=== PATIENT | male | born 1960 | race Caucasian/White ===

== ENCOUNTER 2017-07-06 14:36 | Emergency (ER) | payer OTHER ==
[~2017-07-06] VITALS: Ht 177.8 cm; Wt 90.0 kg
[~2017-07-06 14:36] MED LIST: ASPI-496 PO; ATOR20TA PO
[2017-07-06] MEDS ORDERED: MORPHINE SULFATE 4 MG/ML, 1ML ONE ×2 (15:27→16:36)
[2017-07-06] MEDS ORDERED: SODIUM CHLORIDE 0.9% 1,000ML IVBOLUS ONE (15:30)
[2017-07-06] MEDS ORDERED: SODIUM CHLORIDE FLUSH 10ML SYR IVF ONE (15:30)
[2017-07-06] MEDS: MORPHINE SULFATE 4 MG/ML, 1ML IVPush PRN ×2 (15:32→16:38)
[2017-07-06 15:53] LABS: HEMATOCRIT 50.2 % (39.2-51.8); HEMOGLOBIN 16.8 g/dL (13.7-18.0); WHITE BLOOD COUNT 9.9 x10^3/uL (3.4-10)
[2017-07-06 16:08] LABS: ASPARTATE AMINO TRANSFERASE 17 U/L (15-37); BLOOD UREA NITROGEN 11 mg/dL (7-18)
[2017-07-06] MEDS ORDERED: MORPHINE SULFATE 4 MG/ML, 1ML IVPush PRN (16:30)
[2017-07-06] MEDS ORDERED: morphine SULFATE 10 MG/ML, 1ML IVPush ONE (16:30)
[2017-07-06 16:38] VITALS: BP 144/97
[2017-07-06] MEDS ORDERED: OMNIPAQUE 350 MG/ML, 100ML BOTTLE ONE (16:39)
== END 2017-07-06 17:25 | disposition home or self-care (01) ==
LOC: ED 17:19
DX: K57.32 Diverticulitis of large intestine without perforation or abscess without bleeding (principal)
CPT/HCPCS: 36415; 74177; 80053; 81003; 83605; 83690; 85025; 96361; 96374; 96376; 99285; J7030; Q9967

== ENCOUNTER 2018-04-07 15:15 | Inpatient (IN) | payer OTHER ==
[~2018-04-07] VITALS: Ht 177.8 cm; Wt 95.2 kg
[2018-04-07] MEDS ORDERED: ASPIRIN 81 MG TABLET CHEW ONE (16:13)
[2018-04-07] MEDS ORDERED: SODIUM CHLORIDE FLUSH 10ML SYR IVF ONE (16:30)
[2018-04-07] MEDS ORDERED: NITROGLYCERIN SINGLE TAB 0.4 MG SL PRN (16:30)
[2018-04-07] MEDS ORDERED: ASPIRIN 81 MG TABLET CHEW PO ONE (16:30)
[2018-04-07] MEDS ORDERED: NITROGLYCERIN OINT 2%, 1GM TP ONE ×2 (16:30→16:36)
[2018-04-07 16:49] LABS: BASOPHILS # (AUTO) 0.04 x10^3/uL (0-0.1); BASOPHILS % (AUTO) 1 % (0-1); EOSINOPHILS # (AUTO) 0.22 x10^3/uL (0-0.4); EOSINOPHILS % (AUTO) 3 % (1-7); LYMPHOCYTES % (AUTO) 26 % (22-44); MD NO; MEAN CORPUSCULAR HEMOGLOBIN 30.4 pg (27.5-34.5); MEAN CORPUSCULAR HGB CONC 33.3 g/dL (33.2-36.2); MEAN CORPUSCULAR VOLUME 91.4 fL (81-97); MEAN PLATELET VOLUME 9.4 fL (7.4-10.4); MONOCYTES # (AUTO) 0.59 x10^3/uL (0.2-0.8); MONOCYTES % (AUTO) 9 % (2-9); NEUTROPHILS # (AUTO) 4.21 x10^3/uL (1.8-6.8); NEUTROPHILS % (AUTO) 61 % (42-75); PLATELET COUNT 155 x10^3/uL (130-400); RED CELL DISTRIBUTION WIDTH 13.7 % (9.4-14.8)
[2018-04-07 16:56] LABS: ALANINE AMINOTRANSFERASE 44 U/L (12-78); ALBUMIN 3.8 g/dL (3.4-5.0); ANION GAP 8 mmol/L (5-15); CALCIUM 8.4 mg/dL (8.5-10.1); CHLORIDE 110 mmol/L (98-107); CREATININE 0.85 mg/dL (0.7-1.3)
[2018-04-07 17:01] LABS: ALKALINE PHOSPHATASE 70 U/L (45-117); BILIRUBIN,TOTAL 0.4 mg/dL (0.2-1.0); TOTAL PROTEIN 7.2 g/dL (6.4-8.2); TROPONIN I < 0.015 ng/mL (0.000-0.045)
[2018-04-07] MEDS ORDERED: LABETALOL 5MG/ML, 20ML IVPush PRN (17:30)
[2018-04-07] MEDS ORDERED: ONDANSETRON 2MG/ML, 2ML IVPush PRN (17:30)
[2018-04-07] MEDS ORDERED: POLYETHYLENE GLYCOL 17 GM PACKET PO PRN (17:30)
[2018-04-07] MEDS ORDERED: ONDANSETRON ODT 4 MG PO PRN (17:30)
[2018-04-07 18:29] VITALS: BP 144/94
[2018-04-07 18:30] LABS: FREE T4 (FREE THYROXINE) 0.91 ng/dL (0.76-1.46)
[2018-04-07] MEDS ORDERED: SODIUM CHLORIDE 0.9% 1,000 ML IV SCH (18:30)
[2018-04-07] MEDS ORDERED: ENOXAPARIN 40 MG/0.4 ML SQ SCH (18:30)
[2018-04-07] MEDS: MORPHINE SULFATE 4 MG/ML, 1ML IVPush PRN ×2 (18:39→18:58)
[2018-04-07 18:46] VITALS: BP 153/103
[2018-04-07] MEDS ORDERED: NITROGLYCERIN 0.4 MG BOTTLE (25 TABS) SL ONE (18:50)
[2018-04-07] MEDS ORDERED: ASPIRIN 325 MG TABLET ONE (18:56)
[2018-04-07] MEDS ORDERED: HEPARIN 25,000 UNITS/500ML PMX 500 ML ONE (18:59)
[2018-04-07] MEDS ORDERED: ASPIRIN 325 MG TABLET PO ONE (19:00)
[2018-04-07] MEDS ORDERED: METOPROLOL 1 MG/ML, 5ML ONE (19:01)
[2018-04-07] MEDS ORDERED: HEPARIN 5,000 UNITS/ML, 1ML ONE (19:02)
[2018-04-07 19:08] VITALS: BP 120/81
[2018-04-07] MEDS: METOPROLOL 1 MG/ML, 5ML IVPush PRN ×2 (19:09→19:16)
[2018-04-07 19:11] VITALS: BP 129/83
[2018-04-07 19:19] VITALS: BP 125/82
[2018-04-07] MEDS ORDERED: SODIUM CHLORIDE 0.9% 1,000ML IVBOLUS ONE (19:30)
[2018-04-07] MEDS ORDERED: HEPARIN 5,000 UNITS/ML, 1ML IV PRN (19:30)
[2018-04-07] MEDS ORDERED: HEPARIN 25,000 UNITS/500ML PMX 500 ML IV PRN (19:30)
[2018-04-07] MEDS ORDERED: HEPARIN 5,000 UNITS/ML, 1ML IV ONE (19:30)
[2018-04-07] MEDS ORDERED: MIDAZOLAM 1 MG/ML, 2ML ONE ×2 (19:37→19:53)
[2018-04-07] MEDS ORDERED: BIVALIRUDIN 250 MG ONE ×2 (19:37→20:11)
[2018-04-07] MEDS ORDERED: FENTANYL PF 100 MCG/2ML ONE ×2 (19:37→19:54)
[2018-04-07] MEDS ORDERED: TICAGRELOR 90 MG TABLET ONE (19:37)
[2018-04-07] MEDS ORDERED: LIDOCAINE-MPF 2% ,5ML ONE (19:38)
[2018-04-07 19:42] LABS: TROPONIN I 0.089 ng/mL (0.000-0.045)
[2018-04-07] MEDS ORDERED: BIVALIRUDIN 250 MG in DEXTROSE 5% 50 ML IV SCH (20:18)
[2018-04-07] MEDS ORDERED: ATORVASTATIN 20 MG TABLET PO SCH (21:00)
[2018-04-07] MEDS: TICAGRELOR 90 MG TABLET PO SCH (21:19)
[2018-04-07] MEDS: PANTOPROZOLE 40MG TABLET PO SCH (21:50)
[2018-04-07] MEDS: SODIUM CHLORIDE 0.9% 1,000 ML IV SCH (21:50)
[2018-04-07] MEDS: ACETAMINOPHEN 325 MG TABLET PO PRN (23:10)
[2018-04-08] MEDS: ZOLPIDEM 5MG TABLET PO PRN ×2 (00:48→03:45)
[2018-04-08] MEDS: ACETAMINOPHEN 325 MG TABLET PO PRN ×2 (03:45→20:07)
[2018-04-08 05:01] LABS: ALANINE AMINOTRANSFERASE 102 U/L (12-78); ALBUMIN 3.2 g/dL (3.4-5.0); ANION GAP 10 mmol/L (5-15); CALCIUM 7.5 mg/dL (8.5-10.1); CHLORIDE 112 mmol/L (98-107); CREATININE 0.86 mg/dL (0.7-1.3)
[2018-04-08 05:20] LABS: ALKALINE PHOSPHATASE 58 U/L (45-117); TOTAL PROTEIN 6.1 g/dL (6.4-8.2)
[2018-04-08 05:50] LABS: TROPONIN I > 200.000 ng/mL (0.000-0.045)
[2018-04-08] MEDS: SODIUM CHLORIDE 0.9% 1,000 ML IV SCH ×2 (05:59→08:34)
[2018-04-08] MEDS ORDERED: METOPROLOL TARTRATE 25 MG TABLET PO SCH (06:00)
[2018-04-08] MEDS ORDERED: POTASSIUM CHLORIDE 20 MEQ TAB.ER.PRT PO ONE ×2 (07:30→10:00)
[2018-04-08] MEDS ORDERED: MORPHINE SULFATE 4 MG/ML, 1ML ONE (07:57)
[2018-04-08] MEDS ORDERED: MAGNESIUM SULFATE PMX 2GM/50ML 50 ML IV ONE (08:00)
[2018-04-08] MEDS ORDERED: MORPHINE SULFATE 4 MG/ML, 1ML IVPush ONE (08:00)
[2018-04-08] MEDS ORDERED: NITROGLYCERIN 0.4 MG BOTTLE (25 TABS) SL ONE ×2 (08:16→08:30)
[2018-04-08 08:21] VITALS: BP 129/93
[2018-04-08] MEDS ORDERED: SODIUM CHLORIDE 0.9% 1,000 ML IV ONE (08:27)
[2018-04-08] MEDS ORDERED: NITROGLYCERIN SINGLE TAB 0.4 MG SL ONE (08:30)
[2018-04-08] MEDS ORDERED: MIDAZOLAM 1 MG/ML, 5ML ONE (08:37)
[2018-04-08] MEDS ORDERED: VERAPAMIL 2.5 MG/ML, 2ML ONE (08:37)
[2018-04-08] MEDS ORDERED: FENTANYL PF 100 MCG/2ML ONE (08:37)
[2018-04-08] MEDS ORDERED: BIVALIRUDIN 250 MG ONE (08:37)
[2018-04-08] MEDS ORDERED: HEPARIN 1,000 UNITS/ML, 10ML ONE (08:38)
[2018-04-08] MEDS ORDERED: LIDOCAINE-MPF 2% ,5ML ONE (08:38)
[2018-04-08] MEDS ORDERED: ASPIRIN 81 MG TABLET EC PO SCH (09:00)
[2018-04-08] MEDS ORDERED: SODIUM CHLORIDE 0.9% 1,000 ML IV SCH ×2 (09:00)
[2018-04-08] MEDS ORDERED: MORPHINE SULFATE 4 MG/ML, 1ML IVPush PRN (09:00)
[2018-04-08] MEDS ORDERED: NITROGLYCERIN/D5W PMX 250 ML ONE (09:57)
[2018-04-08] MEDS: PANTOPROZOLE 40MG TABLET PO SCH ×2 (10:32→21:32)
[2018-04-08] MEDS: ASPIRIN 81 MG TABLET EC PO SCH (10:32)
[2018-04-08] MEDS: SENNA/DOCUSATE TABLET PO SCH (10:32)
[2018-04-08] MEDS: TICAGRELOR 90 MG TABLET PO SCH ×2 (10:32→21:32)
[2018-04-08] MEDS ORDERED: NITROGLYCERIN/D5W PMX 250 ML IV PRN (13:00)
[2018-04-08] MEDS ORDERED: ONDANSETRON 2MG/ML, 2ML ONE (13:03)
[2018-04-08] MEDS: CARVEDILOL 6.25 MG TABLET PO SCH (18:02)
[2018-04-08] MEDS: ATORVASTATIN 80 MG TABLET PO SCH (21:32)
[2018-04-09] MEDS: ZOLPIDEM 5MG TABLET PO PRN (00:23)
[2018-04-09] MEDS: ACETAMINOPHEN 325 MG TABLET PO PRN ×3 (00:23→16:07)
[2018-04-09] MEDS: CARVEDILOL 6.25 MG TABLET PO SCH ×2 (06:25→16:59)
[2018-04-09] MEDS: TICAGRELOR 90 MG TABLET PO SCH ×2 (08:48→21:44)
[2018-04-09] MEDS: ASPIRIN 81 MG TABLET EC PO SCH (08:48)
[2018-04-09] MEDS: PANTOPROZOLE 40MG TABLET PO SCH ×2 (08:48→21:43)
[2018-04-09] MEDS: SENNA/DOCUSATE TABLET PO SCH (08:49)
[2018-04-09 09:55] LABS: ALANINE AMINOTRANSFERASE 73 U/L (12-78); ALBUMIN 3.3 g/dL (3.4-5.0); ANION GAP 9 mmol/L (5-15); CHLORIDE 110 mmol/L (98-107); CREATININE 0.88 mg/dL (0.7-1.3)
[2018-04-09 09:58] LABS: ALKALINE PHOSPHATASE 56 U/L (45-117); BILIRUBIN,TOTAL 1.2 mg/dL (0.2-1.0); CHOL/HDL RATIO 3.1; CHOLESTEROL, TOTAL 105 mg/dL (140-239); HDL CHOL % 32 % (26-37); HDL CHOLESTEROL (DIRECT) 34 mg/dL (40-60); LDL CHOLESTEROL,CALCULATED 53 mg/dL (54-169); LDL/HDL RATIO 1.6 (0.5-3.0); TOTAL PROTEIN 6.6 g/dL (6.4-8.2); TRIGLYCERIDES 90 mg/dL (50-200); VLDL CHOLESTEROL 18 mg/dL (0-25)
[2018-04-09] MEDS ORDERED: POTASSIUM CHLORIDE 20 MEQ TAB.ER.PRT PO ONE (11:00)
[2018-04-09 20:16] VITALS: BP 100/69
[2018-04-09] MEDS: ATORVASTATIN 80 MG TABLET PO SCH (21:43)
[2018-04-09] MEDS: LISINOPRIL 5 MG TABLET PO SCH (21:44)
[2018-04-10 01:56] VITALS: BP 97/63
[2018-04-10] MEDS: ACETAMINOPHEN 325 MG TABLET PO PRN (02:06)
[2018-04-10 05:15] LABS: ANION GAP 7 mmol/L (5-15); CHLORIDE 111 mmol/L (98-107); CREATININE 0.91 mg/dL (0.7-1.3)
[2018-04-10 05:16] LABS: CALCIUM 8.7 mg/dL (8.5-10.1)
[2018-04-10] MEDS: CARVEDILOL 6.25 MG TABLET PO SCH (06:24)
[2018-04-10 08:14] VITALS: BP 107/75
[2018-04-10] MEDS: TICAGRELOR 90 MG TABLET PO SCH (08:39)
[2018-04-10] MEDS: PANTOPROZOLE 40MG TABLET PO SCH (08:39)
[2018-04-10] MEDS: LISINOPRIL 5 MG TABLET PO SCH (08:39)
[2018-04-10] MEDS: ASPIRIN 81 MG TABLET EC PO SCH (08:39)
[2018-04-10] MEDS: SENNA/DOCUSATE TABLET PO SCH (08:42)
[2018-04-10] MEDS ORDERED: ONDA4TAB7 PO (10:54)
[2018-04-10] MEDS ORDERED: TICA90TA PO (10:54)
[2018-04-10] MEDS ORDERED: CARV6.2512 PO (10:54)
[2018-04-10] MEDS ORDERED: ATOR-2 PO (10:54)
[2018-04-10] MEDS ORDERED: LISI5TAB7 PO (10:54)
[2018-04-10] MEDS ORDERED: NITR0.4T28 SL (10:54)
[2018-04-10 13:04] VITALS: BP 102/69
[2018-04-10] MEDS ORDERED: NITROGLYCERIN 0.4 MG BOTTLE (25 TABS) SL ONE (13:29)
[2018-04-11] MEDS ORDERED: CHOL40002 PO (12:58)
[2018-04-11] MEDS ORDERED: CETI10TA24 PO (12:58)
[2018-04-11] MEDS ORDERED: UBID100C24 PO (12:59)
[2018-04-11] MEDS ORDERED: ASCO10004 PO (13:00)
[2018-04-11] MEDS ORDERED: DIAZ10TA4 PO (13:01)
== END 2018-04-10 13:48 | disposition home or self-care (01) | DRG 246 ==
LOC: ED 17:23 → EDIP 17:24 → INTOOBSV 17:24 → UNDOADMOB 17:24 → EDIP 17:29 → ED 17:42 → OBSVTOIN 18:00 → 5SO 18:24 → EDIP 18:24 → CCU 20:36 → 5SO 04-09 19:21
PROVIDERS: ADMIT Hospitalist; ATTEND Hospitalist
PROC: 027034Z Dilation of Coronary Artery, One Artery with Drug-eluting Intraluminal Device, Percutaneous Approach (ICD-10-PCS; 2018-04-07)
PROC: 4A023N7 Measurement of Cardiac Sampling and Pressure, Left Heart, Percutaneous Approach (ICD-10-PCS; principal; 2018-04-08)
PROC: B2111ZZ Fluoroscopy of Multiple Coronary Arteries using Low Osmolar Contrast (ICD-10-PCS; 2018-04-08)
PROC: B2151ZZ Fluoroscopy of Left Heart using Low Osmolar Contrast (ICD-10-PCS; 2018-04-08)
DX: I21.09 ST elevation (STEMI) myocardial infarction involving other coronary artery of anterior wall (principal); I50.33 Acute on chronic diastolic (congestive) heart failure; K57.92 Diverticulitis of intestine, part unspecified, without perforation or abscess without bleeding; E78.5 Hyperlipidemia, unspecified; I11.0 Hypertensive heart disease with heart failure; I25.110 Atherosclerotic heart disease of native coronary artery with unstable angina pectoris; I25.2 Old myocardial infarction; I25.5 Ischemic cardiomyopathy; I34.0 Nonrheumatic mitral (valve) insufficiency; Z79.82 Long term (current) use of aspirin; Z80.7 Family history of other malignant neoplasms of lymphoid, hematopoietic and related tissues; Z80.8 Family history of malignant neoplasm of other organs or systems; Z82.49 Family history of ischemic heart disease and other diseases of the circulatory system; Z87.891 Personal history of nicotine dependence; Z90.49 Acquired absence of other specified parts of digestive tract
CPT/HCPCS: 36415; 71045; 80048; 80053; 80061; 83036; 83735; 83880; 84100; 84439; 84443; 84484; 85025; 87081; 93005; 93306; 93454; 93458; 99156; 99157; 99285; C1760; C1769; C1894; J0583; J1644; J1650; J2250; J2405; J3010; J3490; Q0162; C1725; C1874; C1887; G0378; J3475; J7030; Q9967

== ENCOUNTER 2018-04-11 12:35 | Observation (INO) | payer OTHER ==
[~2018-04-11] VITALS: Ht 177.8 cm; Wt 89.5 kg
[~2018-04-11 12:35] MED LIST changes: +ATOR-2 PO; +CARV6.2512 PO; +LISI5TAB7 PO; +NITR0.4T28 SL; +ONDA4TAB7 PO; +TICA90TA PO
[2018-04-11] MEDS ORDERED: CHOL40002 PO (12:58)
[2018-04-11] MEDS ORDERED: CETI10TA24 PO (12:58)
[2018-04-11] MEDS ORDERED: UBID100C24 PO (12:59)
[2018-04-11] MEDS ORDERED: HEPARIN 25,000 UNITS/500ML PMX 500 ML IV PRN (13:00)
[2018-04-11] MEDS ORDERED: HEPARIN 5,000 UNITS/ML, 1ML IV ONE (13:00)
[2018-04-11] MEDS ORDERED: ONDANSETRON 4 MG TABLET PO PRN (13:00)
[2018-04-11] MEDS ORDERED: NITROGLYCERIN 0.4 MG/SPRAY SL PRN (13:00)
[2018-04-11] MEDS ORDERED: ASCO10004 PO (13:00)
[2018-04-11] MEDS ORDERED: NITROGLYCERIN 0.4 MG BOTTLE (25 TABS) SL PRN ×2 (13:00)
[2018-04-11] MEDS ORDERED: DIAZ10TA4 PO (13:01)
[2018-04-11 13:03] LABS: BASOPHILS # (AUTO) 0.03 x10^3/uL (0-0.1); BASOPHILS % (AUTO) 0 % (0-1); EOSINOPHILS % (AUTO) 2 % (1-7); LYMPHOCYTES # (AUTO) 1.61 x10^3/uL (1-3.4); LYMPHOCYTES % (AUTO) 19 % (22-44); MD NO; MEAN CORPUSCULAR HEMOGLOBIN 30.6 pg (27.5-34.5); MEAN CORPUSCULAR HGB CONC 33.5 g/dL (33.2-36.2); MEAN CORPUSCULAR VOLUME 91.2 fL (81-97); MEAN PLATELET VOLUME 10.5 fL (7.4-10.4); MONOCYTES # (AUTO) 0.63 x10^3/uL (0.2-0.8); MONOCYTES % (AUTO) 7 % (2-9); NEUTROPHILS # (AUTO) 6.02 x10^3/uL (1.8-6.8); NEUTROPHILS % (AUTO) 71 % (42-75); PLATELET COUNT 173 x10^3/uL (130-400); RED BLOOD COUNT 4.77 x10^6/uL (4.38-5.82); RED CELL DISTRIBUTION WIDTH 13.6 % (9.4-14.8)
[2018-04-11 13:12] LABS: INTERNATIONAL NORMALIZED RATIO 1.03 (0.93-1.1); PROTHROMBIN TIME 10.7 Seconds (9.6-11.5)
[2018-04-11] MEDS ORDERED: FUROSEMIDE 20 MG/2 ML ONE (13:12)
[2018-04-11] MEDS ORDERED: HEPARIN 5,000 UNITS/ML, 1ML ONE (13:12)
[2018-04-11 13:13] LABS: ALBUMIN 3.4 g/dL (3.4-5.0); ANION GAP 12 mmol/L (5-15); CALCIUM 8.4 mg/dL (8.5-10.1); CHLORIDE 109 mmol/L (98-107)
[2018-04-11 13:19] LABS: CREATININE 0.94 mg/dL (0.7-1.3)
[2018-04-11] MEDS ORDERED: HEPARIN 25,000 UNITS/500ML PMX 500 ML ONE (13:21)
[2018-04-11] MEDS ORDERED: FUROSEMIDE 20 MG/2 ML IV ONE (13:30)
[2018-04-11] MEDS ORDERED: POTASSIUM CHLORIDE 20 MEQ TAB.ER.PRT PO ONE (14:00)
[2018-04-11] MEDS ORDERED: POTASSIUM CHLORIDE 20 MEQ TAB.ER.PRT ONE (14:19)
[2018-04-11 15:59] VITALS: BP 104/71
[2018-04-11] MEDS: CARVEDILOL 6.25 MG TABLET PO SCH (17:27)
[2018-04-11 18:52] VITALS: BP 104/70
[2018-04-11] MEDS ORDERED: ATORVASTATIN 80 MG TABLET PO SCH (21:00)
[2018-04-11] MEDS: SODIUM CHLORIDE FLUSH 10ML SYR IVF SCH (21:33)
[2018-04-11] MEDS: TICAGRELOR 90 MG TABLET PO SCH (21:33)
[2018-04-11] MEDS: LISINOPRIL 5 MG TABLET PO SCH (21:33)
[2018-04-11] MEDS: HEPARIN 5,000 UNITS/ML, 1ML IV PRN (21:35)
[2018-04-12 02:55] VITALS: BP 102/69
[2018-04-12 04:57] LABS: ANION GAP 8 mmol/L (5-15); CALCIUM 8.6 mg/dL (8.5-10.1); CHLORIDE 110 mmol/L (98-107); CREATININE 0.97 mg/dL (0.7-1.3)
[2018-04-12] MEDS: CARVEDILOL 6.25 MG TABLET PO SCH (05:47)
[2018-04-12] MEDS: HEPARIN 5,000 UNITS/ML, 1ML IV PRN (06:42)
[2018-04-12] MEDS: TICAGRELOR 90 MG TABLET PO SCH (07:27)
[2018-04-12] MEDS: SODIUM CHLORIDE FLUSH 10ML SYR IVF SCH (07:27)
[2018-04-12] MEDS: LISINOPRIL 5 MG TABLET PO SCH (07:27)
[2018-04-12 07:45] VITALS: BP 102/70
[2018-04-12] MEDS ORDERED: ASPIRIN 81 MG TABLET EC PO SCH (09:00)
== END 2018-04-12 11:45 | disposition home or self-care (01) ==
LOC: ED 13:03 → EDIP 13:04 → 5SO 15:37 → DCLOUNGE 04-12 11:29
PROVIDERS: ADMIT Internal Medicine Cardiovascular Disease; ATTEND Internal Medicine Cardiovascular Disease
DX: R07.89 Other chest pain (principal); I25.10 Atherosclerotic heart disease of native coronary artery without angina pectoris; I25.5 Ischemic cardiomyopathy; I34.0 Nonrheumatic mitral (valve) insufficiency; I11.0 Hypertensive heart disease with heart failure; I50.41 Acute combined systolic (congestive) and diastolic (congestive) heart failure; E78.5 Hyperlipidemia, unspecified; I25.2 Old myocardial infarction; Z95.5 Presence of coronary angioplasty implant and graft
CPT/HCPCS: 36415; 71045; 80048; 82040; 83880; 84484; 85025; 85520; 85610; 85730; 93005; 96365; 96366; 96375; 96376; 99285; G0378; J1644; J1940

== ENCOUNTER 2018-05-06 08:55 | Emergency (ER) | payer OTHER ==
[~2018-05-06] VITALS: Ht 177.8 cm; Wt 86.0 kg
[~2018-05-06 08:55] MED LIST changes: +ASCO10004 PO; +CETI10TA24 PO; +CHOL40002 PO; +DIAZ10TA4 PO; +MULT-97 PO; +UBID100C24 PO
[2018-05-06] MEDS ORDERED: SODIUM CHLORIDE FLUSH 10ML SYR IVF ONE (09:30)
[2018-05-06 09:42] LABS: BASOPHILS # (AUTO) 0.02 x10^3/uL (0-0.1); BASOPHILS % (AUTO) 0 % (0-1); EOSINOPHILS # (AUTO) 0.17 x10^3/uL (0-0.4); EOSINOPHILS % (AUTO) 4 % (1-7); LYMPHOCYTES # (AUTO) 1.47 x10^3/uL (1-3.4); LYMPHOCYTES % (AUTO) 31 % (22-44); MD NO; MEAN CORPUSCULAR HEMOGLOBIN 30.6 pg (27.5-34.5); MEAN CORPUSCULAR HGB CONC 33.8 g/dL (33.2-36.2); MEAN CORPUSCULAR VOLUME 90.7 fL (81-97); MEAN PLATELET VOLUME 9.7 fL (7.4-10.4); MONOCYTES # (AUTO) 0.39 x10^3/uL (0.2-0.8); MONOCYTES % (AUTO) 8 % (2-9); NEUTROPHILS # (AUTO) 2.76 x10^3/uL (1.8-6.8); NEUTROPHILS % (AUTO) 57 % (42-75); PLATELET COUNT 126 x10^3/uL (130-400); RED BLOOD COUNT 4.91 x10^6/uL (4.38-5.82); RED CELL DISTRIBUTION WIDTH 13.8 % (9.4-14.8)
[2018-05-06 09:53] LABS: ALBUMIN 3.7 g/dL (3.4-5.0); CALCIUM 8.3 mg/dL (8.5-10.1); CREATININE 0.86 mg/dL (0.7-1.3)
[2018-05-06 09:57] LABS: ANION GAP 6 mmol/L (5-15); TROPONIN I 0.039 ng/mL (0.000-0.045)
[2018-05-06 09:58] LABS: CHLORIDE 113 mmol/L (98-107)
[2018-05-06] MEDS ORDERED: LORazepam 2 MG/ML, 1ML IVPush PRN (12:30)
[2018-05-06 12:50] VITALS: BP 100/71
== END 2018-05-06 12:53 | disposition home or self-care (01) ==
LOC: ED 09:55
DX: R07.89 Other chest pain (principal); I95.2 Hypotension due to drugs; E78.5 Hyperlipidemia, unspecified; I25.10 Atherosclerotic heart disease of native coronary artery without angina pectoris; I25.2 Old myocardial infarction
CPT/HCPCS: 36415; 71045; 80048; 82040; 84484; 85025; 93005; 99285

== ENCOUNTER 2018-10-24 06:31 | Emergency (ER) | payer OTHER ==
[~2018-10-24] VITALS: Ht 177.8 cm; Wt 89.9 kg
[~2018-10-24 06:31] MED LIST changes: +LACT1CAP43 PO; +LISI2.5T PO; +RIVA20TA PO
[2018-10-24] MEDS ORDERED: SODIUM CHLORIDE FLUSH 10ML SYR IVF ONE (07:00)
[2018-10-24] MEDS ORDERED: ASPIRIN 81 MG TABLET CHEW PO ONE (07:00)
[2018-10-24] MEDS ORDERED: NITROGLYCERIN SINGLE TAB 0.4 MG SL ONE (07:05)
[2018-10-24] MEDS ORDERED: ASPIRIN 81 MG TABLET CHEW ONE (07:06)
[2018-10-24] MEDS: NITROGLYCERIN SINGLE TAB 0.4 MG SL PRN ×2 (07:29→09:53)
[2018-10-24 07:51] LABS: ALANINE AMINOTRANSFERASE 49 U/L (12-78); ANION GAP 9 mmol/L (5-15); BASOPHILS # (AUTO) 0.04 x10^3/uL (0-0.1); BASOPHILS % (AUTO) 1 % (0-1); CALCIUM 8.6 mg/dL (8.5-10.1); CHLORIDE 111 mmol/L (98-107); CREATININE 1.06 mg/dL (0.7-1.3); EOSINOPHILS # (AUTO) 0.12 x10^3/uL (0-0.4); EOSINOPHILS % (AUTO) 3 % (1-7); LYMPHOCYTES # (AUTO) 1.71 x10^3/uL (1-3.4); LYMPHOCYTES % (AUTO) 35 % (22-44); MD NO; MEAN CORPUSCULAR HEMOGLOBIN 31.1 pg (27.5-34.5); MEAN CORPUSCULAR HGB CONC 34.1 g/dL (33.2-36.2); MEAN CORPUSCULAR VOLUME 91.3 fL (81-97); MEAN PLATELET VOLUME 9.8 fL (7.4-10.4); MONOCYTES # (AUTO) 0.36 x10^3/uL (0.2-0.8); MONOCYTES % (AUTO) 7 % (2-9); NEUTROPHILS # (AUTO) 2.67 x10^3/uL (1.8-6.8); NEUTROPHILS % (AUTO) 55 % (42-75); PLATELET COUNT 160 x10^3/uL (130-400); RED BLOOD COUNT 5.25 x10^6/uL (4.38-5.82)
[2018-10-24 07:55] LABS: ALKALINE PHOSPHATASE 71 U/L (45-117); BILIRUBIN,TOTAL 1.1 mg/dL (0.2-1.0); TOTAL PROTEIN 7.1 g/dL (6.4-8.2); TROPONIN I 0.076 ng/mL (0.000-0.045)
[2018-10-24 08:11] LABS: INTERNATIONAL NORMALIZED RATIO 1.08 (0.93-1.1); PROTHROMBIN TIME 11.4 Seconds (9.6-11.5)
[2018-10-24] MEDS ORDERED: EZET10TA18 PO (08:42)
[2018-10-24] MEDS ORDERED: UBID1CAP43 PO (08:42)
[2018-10-24] MEDS ORDERED: CEFTRIAXONE 1,000 MG in SODIUM CHLORIDE 0.9% 50 ML IVPB ONE (09:30)
[2018-10-24] MEDS ORDERED: CEFTRIAXONE PMX 1GM/50ML 50 ML ONE (09:50)
[2018-10-24] MEDS ORDERED: CEFTRIAXONE PMX 1GM/50ML 50 ML IVPB ONE (10:00)
[2018-10-24 10:43] VITALS: BP 127/91
== END 2018-10-24 10:46 | disposition home or self-care (01) ==
LOC: ED 07:23
DX: R07.89 Other chest pain (principal); R06.00 Dyspnea, unspecified; E78.5 Hyperlipidemia, unspecified; I25.10 Atherosclerotic heart disease of native coronary artery without angina pectoris; I25.2 Old myocardial infarction
CPT/HCPCS: 36415; 71045; 80053; 83880; 84484; 85025; 85610; 85730; 93005; 96365; 99284; J0696